=== PATIENT | male | born 1955 | race Caucasian/White ===

== ENCOUNTER 2022-02-28 03:44 | Emergency (ER) | payer MEDICAID ==
[~2022-02-28] VITALS: Ht 170.2 cm; Wt 89.0 kg
[~2022-02-28 03:44] MED LIST: ARIP15TA27 PO; FLUT1DIS6 IH; HYDR25TA PO; IPRA4AER IH; RISP2TAB45 PO
[2022-02-28 04:47] LABS: BASOPHILS % (AUTO) 0.3 % (0.0-2.0); EOSINOPHILS % (AUTO) 0.4 % (1.0-6.0); HEMATOCRIT 36.8 % (41-53); HEMOGLOBIN 12.2 g/dL (13.5-17.5); LYMPHOCYTES % (AUTO) 23.9 % (22.0-44.0); MEAN CORPUSCULAR HEMOGLOBIN 32.5 pg (26.0-34.0); MEAN CORPUSCULAR HGB CONC 33.3 G/dL (31.0-37.0); MEAN CORPUSCULAR VOLUME 98 fL (80-100); MONOCYTES # (AUTO) 0.4 K/uL (0.1-1.0); MONOCYTES % (AUTO) 8.6 % (2.0-9.0); NEUTROPHILS # (AUTO) 2.8 K/uL (1.8-7.7); NEUTROPHILS % (AUTO) 66.8 % (40.0-70.0); PLATELET COUNT (AUTO) 97 K/uL (150-450); RED BLOOD CELL COUNT(AUTO) 3.77 MIL/uL (4.50-5.90); RED CELL DISTRIBUTION WIDTH 15.8 % (11.5-14.5)
[2022-02-28 04:57] LABS: ANION GAP 9 mmol/L (8-16); CARBON DIOXIDE 29 mmol/L (22-29); CHLORIDE 95 mmol/L (98-107); CREATININE 0.68 mg/dL (0.60-1.30); GLOMERULAR FILTR. RATE CALC > 60 mL/min (>60); GLUCOSE,RANDOM 68 mg/dL (70-110); POTASSIUM 3.5 mmol/L (3.5-5.1); SODIUM SERUM 133 mmol/L (136-145); UREA NITROGEN, BLOOD 9 mg/dL (7-18)
[2022-02-28 05:03] LABS: ALANINE AMINOTRANSFERASE 128 U/L (12-78); ALBUMIN 3.3 g/dL (3.4-5.0); ALKALINE PHOSPHATASE 82 U/L (46-116); ASPARTATE AMINOTRANSFERASE 221 U/L (15-37); LIPASE 184 U/L (73-393); TOTAL PROTEIN, SERUM 6.7 g/dL (6.4-8.2)
[2022-02-28 05:10] LABS: COVID AG,FIA SOURCE NASOPHARYNGEAL
[2022-02-28 11:45] VITALS: BP 126/67
== END 2022-02-28 11:50 | disposition home or self-care (01) ==
LOC: EMS 03:45
DX: F10.129 Alcohol abuse with intoxication, unspecified (principal); K70.30 Alcoholic cirrhosis of liver without ascites; D61.818 Other pancytopenia; Z20.822 Contact with and (suspected) exposure to COVID-19
CPT/HCPCS: 99285; 82962; 87426; 80053; 83690; 84484; 85025; 36415; G0480